=== PATIENT | female | born 1965 | race Caucasian/White ===

== ENCOUNTER 2016-10-07 12:32 | Emergency (ER) | payer OTHER ==
[2016-10-07 13:17] LABS: PH,URINE 6.5 (5.0 - 9.0); URINE BILIRUBIN NEGATIVE (NEGATIVE); URINE BLOOD NEGATIVE (NEGATIVE); URINE GLUCOSE (UA) NORMAL (NORMAL); URINE KETONE NEGATIVE (NEGATIVE); URINE LEUKOCYTE ESTERASE TRACE (NEGATIVE); URINE NITRATE NEGATIVE (NEGATIVE); URINE PROTEIN 1+ (NEGATIVE)
[2016-10-07 13:26] LABS: BASO % 0.1 % (0.1-1.2); EOS # 0.1 10_X3_uL (0.0-0.4); GRAN # 4.3 10_X3_uL (1.6-6.1); GRAN % 53.2 % (34.0-71.1); HEMATOCRIT 37.6 % (34-45); HEMOGLOBIN 12.8 g/dL (11.2-15.7); LYMPH # 3.1 10_X3_uL (1.2-3.7); LYMPH % 38.1 % (19.3-51.7); MEAN CORPUSCULAR VOLUME 85.1 fL (79-95); MEAN PLATELET VOLUME 9.4 fl (7.5-11.5); MONO # 0.6 10_X3_uL (0.2-0.9); MONO % 7.6 % (4.7-12.5); PLATELET COUNT 248 x10_3/uL (182-369); RED BLOOD COUNT 4.42 x10_6/uL (3.9-5.2); RED CELL DISTRIBUTION WIDTH 14.2 % (11.7-14.4); WHITE BLOOD COUNT 8.1 x10_3/uL (4.0-10.0)
[2016-10-07 13:26] LABS: URINE RBC 0-5 /[HPF] (0-2)
[2016-10-07 13:27] LABS: URINE BACTERIA TRACE (NONE SEEN); URINE MUCUS TRACE; URINE SQUAMOUS EPITHELIAL CELL 0-10 /[HPF] (NONE SEEN); URINE WBC 0-5 /[HPF] (0-5)
== END 2016-10-07 14:37 | disposition home or self-care (01) ==
LOC: ER 12:32
PROVIDERS: General Practice
DX: N20.0 Calculus of kidney (principal); R80.9 Proteinuria, unspecified; R10.9 Unspecified abdominal pain; R10.31 Right lower quadrant pain; M51.9 Unspecified thoracic, thoracolumbar and lumbosacral intervertebral disc disorder; E11.9 Type 2 diabetes mellitus without complications; I10 Essential (primary) hypertension; F17.210 Nicotine dependence, cigarettes, uncomplicated; Z79.4 Long term (current) use of insulin; Z79.82 Long term (current) use of aspirin
CPT/HCPCS: 36415; 72128; 72131; 81001; 85025; 99070; 99284-25

== ENCOUNTER 2016-11-30 22:54 | Emergency (ER) | payer OTHER | END 2016-11-30 23:02 | disposition home or self-care (01) | LOC: ER 22:54 | DX: J02.9 Acute pharyngitis, unspecified (principal); J32.9 Chronic sinusitis, unspecified; R30.0 Dysuria; F17.210 Nicotine dependence, cigarettes, uncomplicated; R05 Cough | CPT/HCPCS: 99282 ==

== ENCOUNTER 2017-01-04 11:37 | Emergency (ER) | payer OTHER ==
[2017-01-04 12:13] LABS: URINE BILIRUBIN NEGATIVE (NEGATIVE); URINE BLOOD TRACE (NEGATIVE); URINE KETONE NEGATIVE (NEGATIVE); URINE LEUKOCYTE ESTERASE 1+ (NEGATIVE); URINE NITRATE NEGATIVE (NEGATIVE); URINE PROTEIN 1+ (NEGATIVE); UROBILINOGEN NORMAL mg/dL (<1.0)
[2017-01-04 12:31] LABS: URINE BACTERIA TRACE (NONE SEEN); URINE GLUCOSE (UA) 1000 mg/dL (NORMAL); URINE RBC RARE /[HPF] (0-2); URINE SQUAMOUS EPITHELIAL CELL 0-10 /[HPF] (NONE SEEN); URINE WBC >15 /[HPF] (0-5)
[2017-01-04 12:32] LABS: URINE YEAST FEW (NONE SEEN)
== END 2017-01-04 13:44 | disposition home or self-care (01) ==
LOC: ER 11:37
PROVIDERS: General Practice
DX: N20.0 Calculus of kidney (principal); N30.80 Other cystitis without hematuria; R30.0 Dysuria; R10.9 Unspecified abdominal pain; R81 Glycosuria; E11.9 Type 2 diabetes mellitus without complications; F17.210 Nicotine dependence, cigarettes, uncomplicated
CPT/HCPCS: 74150; 81001; 81025; 87086; 96372; 99070; 99284-25

== ENCOUNTER 2017-01-05 21:45 | Emergency (ER) | payer OTHER | END 2017-01-06 01:38 | disposition home or self-care (01) | LOC: ER 21:45 | DX: J06.9 Acute upper respiratory infection, unspecified (principal); R05 Cough; E11.9 Type 2 diabetes mellitus without complications; J44.9 Chronic obstructive pulmonary disease, unspecified; I10 Essential (primary) hypertension; Z95.5 Presence of coronary angioplasty implant and graft; F17.210 Nicotine dependence, cigarettes, uncomplicated; Z79.82 Long term (current) use of aspirin; Z79.899 Other long term (current) drug therapy | CPT/HCPCS: 96372; 99282-25 ==